=== PATIENT | female | born 2005 | race African-American/Black ===

== ENCOUNTER 2025-05-26 08:14 | Emergency (ER) | payer BC, OTHER, SELFPAY ==
[2025-05-26] MEDS ORDERED: Droperidol 5 MG/2 ML VIAL ONE (08:39)
[2025-05-26 09:00] LABS: #Basophils Less than 0.03 10x3/uL (0.0-0.2); #Eosinophils Less than 0.03 10x3/uL (0.0-0.7); #Monocytes 0.78 10x3/uL (0.11-0.59); #Neutrophils 12.35 10x3/uL (1.40-6.50); %Basophils 0.1 % (0.0-1.0); %Eosinophils 0.0 % (0.0-10.0); %Lymphocytes 6.4 % (28.0-48.0); %Monocytes 5.5 % (0.0-4.0); %Neutrophils 87.6 % (31.0-61.0); Hematocrit 35.7 % (36.0-47.0); Hemoglobin 12.0 g/dL (12.0-16.0); Mean Corpuscular Hemoglobin 31.4 pg (25.0-35.0); Mean Corpuscular Volume 93.5 fL (78.0-98.0); Platelet Count 308 10x3/uL (130-400); Red Blood Cell (RBC) Count 3.82 mill/uL (4.00-5.20); White Blood Cell (WBC) Count 14.10 10x3/uL (4.8-10.8)
[2025-05-26 09:12] LABS: BHCG - Serum Negative (NEGATIVE); Pregs Control Background? CLEAR/WHITE (CLR/WHITE); Pregs Control Bar Appear? YES (CONTROL BAR)
[2025-05-26 09:21] LABS: ALT (SGPT) 13 U/L (Less than 34); AST (SGOT) 21 U/L (11-34); Albumin 4.7 g/dL (3.1-4.5); Alkaline Phosphatase 101 U/L (40-100); Anion Gap 18 mmol/L (10-20); BUN (Urea Nitrogen) 6 mg/dL (8.4-21.0); Bilirubin, Total 0.6 mg/dL (0.3-1.2); Calc. Creatinine Clearance 0 mL/min (70-130); Calcium 9.8 mg/dL (7.8-10.44); Carbon Dioxide 17 mmol/L (22-29); Chloride 108 mmol/L (98-107); Globulin 3.0 g/dL (2.4-3.5); Glucose 112 mg/dL (70-105); Lipase 14 U/L (8-78); Magnesium 1.6 mg/dL (1.7-2.2); Potassium 4.0 mmol/L (3.5-5.1); Sodium 139 mmol/L (136-145)
== END 2025-05-26 11:00 | disposition home or self-care (01) ==
LOC: ERS 08:14
DX: R11.16 Cannabis hyperemesis syndrome (principal)
CPT/HCPCS: 80053; 83690; 83735; 84703; 85025; 96361; 96365; 96375; J1790